=== PATIENT | female | born 1970 | race Asian ===

== ENCOUNTER 2022-07-28 09:57 | Day surgery (SDC) | payer OTHER ==
[~2022-07-28] VITALS: Ht 152.4 cm; Wt 53.0 kg
[2022-07-28 10:12] VITALS: BP 111/72
[2022-07-28 11:38] LABS: BASOPHILS % 0.6 % (0.0-2.0); LYMPHOCYTES % 11.7 % (20.0-50.0); MEAN CORPUSCULAR HEMOGLOBIN 35.5 pg (28.0-32.0); MEAN CORPUSCULAR VOLUME 103.6 fL (81.0-99.0); MEAN PLATELET VOLUME 8.4 fl (7.4-10.4); MONOCYTES % 6.7 % (2.0-8.0); PLATELET 186 x1000/uL (130-400); RED BLOOD CELL COUNT 3.96 mill/uL (4.2-5.4); RED CELL DISTRIBUTION WIDTH 14.2 % (11.6-14.6)
[2022-07-28 11:55] LABS: CHLORIDE 105 mEq/L (98-107)
[2022-07-28] MEDS ORDERED: BALANCED SALT IRRIG SOLN COMB1 500ML OP NR (14:15)
[2022-07-28] MEDS ORDERED: TETRACAINE 0.5% OPHTH DROPS 4ML ONE (15:00)
[2022-07-28] MEDS ORDERED: PREDNISOLONE ACETATE 1% OPHTH DROPS 5ML ONE (15:00)
[2022-07-28] MEDS ORDERED: LIDOCAINE HCL/PF 2% 20MG/ML 5 ML/VIAL ONE (15:00)
[2022-07-28] MEDS ORDERED: CIPROFLOXACIN 0.3% OPHTH SOLN 2.5ML ONE (15:00)
[2022-07-28] MEDS ORDERED: BUPIVACAINE HCL/PF 0.75% (7.5MG/ML) 10ML ONE (15:00)
[2022-07-28] MEDS ORDERED: FENTANYL CITRATE/PF 50MCG/ML 2ML VIAL ONE (15:06)
[2022-07-28] MEDS ORDERED: MIDAZOLAM HCL 2 MG/2 ML VIAL ONE (15:06)
[2022-07-28] MEDS ORDERED: DEXAMETHASONE 4MG/ML 1ML VIAL ONE (15:09)
[2022-07-28] MEDS ORDERED: ONDANSETRON HCL 4MG/2ML INJ ONE (15:09)
[2022-07-28] MEDS ORDERED: HYALURONATE SODIUM 10 MG/ML 0.55ML SYRINGE IO ONE (15:44)
== END 2022-07-28 17:10 | disposition home or self-care (01) ==
LOC: ER 09:57 → OR 15:20
PROVIDERS: ATTEND Ophthalmology
DX: H27.132 Posterior dislocation of lens, left eye (principal); Z79.899 Other long term (current) drug therapy; Z98.890 Other specified postprocedural states
CPT/HCPCS: 36415; 66825; 71045; 80053; 85025; 99284; J1100; J2250; J2405; J3010; J3490